=== PATIENT | male | born 1995 | race Two or more races ===

== ENCOUNTER 2016-10-13 21:18 | Emergency (ER) | payer OTHER ==
[~2016-10-13] VITALS: Ht 160 cm; Wt 47.6 kg
[2016-10-13] MEDS ORDERED: IBUPROFEN 400 MG TAB PO ONE (23:45)
[2016-10-13 23:58] VITALS: BP 139/69
== END 2016-10-14 00:54 | disposition home or self-care (01) ==
LOC: ER 21:44
DX: S82.891A Other fracture of right lower leg, initial encounter for closed fracture (principal); Z88.0 Allergy status to penicillin; X50.0XXA Overexertion from strenuous movement or load, initial encounter; Y93.89 Activity, other specified; Y99.8 Other external cause status; Y92.89 Other specified places as the place of occurrence of the external cause
CPT/HCPCS: 29515; 73610